=== PATIENT | female | born 2000 | race Caucasian/White ===

== ENCOUNTER 2020-07-18 21:17 | Emergency (ER) | payer OTHER, SELFPAY ==
[2020-07-18 21:19] VITALS: BP 145/84; PULSE 82; RESP 16; TEMP 36; O2SAT 100
--- NOTE | 2020-07-18 21:22 | ED.WOUNDLAC ---
HPI - Wound/Laceration General Chief Complaint: Wound/Laceration Stated Complaint: HAND INJURY Time Seen by Provider: 07/18/20 21:21 Source: patient Mode of arrival: ambulatory Limitations: no limitations History of Present Illness HPI narrative: Patient is a 20-year-old female who presents for evaluation of a laceration to her left hand. Patient was carving pumpkin to see me when a knife she was holding with her right hand slipped and cut into the webspace between her thumb and index finger. Patient reports no active bleeding. Minimal pain. She is up-to-date on her tetanus. No numbness. Patient is right-hand dominant. Review of Systems Review of Systems: Narrative: CONSTITUTIONAL: Denies fever CARDIOVASCULAR: Denies chest pain RESPIRATORY: Denies cough or dyspnea. GASTROINTESTINAL: Denies abdominal pain SKIN: Denies rash, reports laceration to left hand MUSCULOSKELETAL: Denies back pain NEUROLOGIC: Denies headache PMFSH Past Medical History Medical History (Updated 07/18/20 @ 21:29 by Sanjuanita Mancini MD) No pertinent past medical history Social History Social History (Updated 07/18/20 @ 21:27 by Sanjuanita Mancini MD) Smoking status: Never smoker Alcohol intake: current Alcohol use details: Rare, social Gender identity (if verbalized by the patient): Female Exam Narrative: Exam Narrative: GENERAL: Awake, alert, conversant HEAD: Normocephalic, atraumatic. EYES: PERRLA and EOMI. ENT: Nares clear, no rhinorrhea or epistaxis. Mucous membranes moist. NECK: Supple. CHEST: No respiratory distress, breathing even and non labored HEART: Regular rate, sinus rhythm ABDOMEN:Non distended, non tender EXTREMITIES: Normal range of motion. No edema. SKIN: Warm, dry, 1.5 cm laceration to the webspace between the left and the left index finger. No active bleeding. No foreign body. No osseous tenderness. Radial pulse intact and 2+. Intact sensation median, ulnar, radial nerve distribution. NEURO:No focal deficits. Alert and oriented x3 Course Vital Signs Vital signs: Vital Signs Temperature 36.0 C L 07/18/20 21:19 Pulse Rate 82 07/18/20 21:19 Respiratory Rate 16 07/18/20 21:19 Blood Pressure 145/84 H 07/18/20 21:19 Pulse Oximetry 100 07/18/20 21:19 Temperature 36.0 C L 07/18/20 21:19 Pulse Rate 82 07/18/20 21:19 Respiratory Rate 16 07/18/20 21:19 Blood Pressure 145/84 H 07/18/20 21:19 Pulse Oximetry 100 07/18/20 21:19 Procedures Laceration Laceration 1: Date: 07/18/20 Time: 21:28 Site: hand Side (If applicable): left Size (cm): 1.5 Description: linear Depth: simple, single layer Local Anesthetic: lidocaine 1% Amount of anesthesia used (mL): 3 Pre-repair: wound explored and irrigated ====== Skin Level ====== Skin layer closed with: prolene Size (cm): 5-0 Number of sutures: 4 Technique: simple, interrupted ====== Subcutaneous Layer ====== ====== Muscle Layer ====== ====== Tendon Layer ====== MDM - Wound/Laceration MDM Narrative Medical decision making narrative: Patient with laceration to the webspace between left thumb and left index finger. No foreign body. No contamination. Patient's tetanus is already up-to-date. This was irrigated and closed as described in the procedure note. Patient given wound education and instructions to have stitches removed in 1 week. Patient then discharged home. Differential Diagnosis Differential diagnosis: Likely laceration Discharge Plan Discharge Clinical Impression: Laceration Patient Disposition: Home, Self-Care Condition: Stable Instructions: Laceration (ED) Additional Instructions: Please keep your wound clean and dry. Please do not soak it in any water. You may wash with antibacterial soap and pat it to dry. Please do not scrub the wound. Signs of infection including redness, purulent renato
--- NOTE | 2020-07-18 21:36 | PC.NURSE ---
patient brought back to ED room 16 with laceration to her right hand. see triage notes. no change in condition since triage completed. no active bleeding. has small amount of gauze on wound from home. last TDAP this summer per patient. assessments documented. resting in room. room set up for sutures.
--- NOTE | 2020-07-18 21:51 | PC.NURSE ---
provider at bedside for suture placement
== END 2020-07-18 21:59 | disposition home or self-care (01) ==
PROVIDERS: Emergency Provider Emergency Medicine
DX: S61.412A Laceration without foreign body of left hand, initial encounter (principal); W26.0XXA Contact with knife, initial encounter
CPT/HCPCS: 12001; 99282